=== PATIENT | male | born 1955 | race Caucasian/White ===

== ENCOUNTER → 2022-03-20 | Outpatient (CLI) | payer BC ==
[2022-03-20 15:44] LABS: ALBUMIN 4.1 G/DL (3.2-5.2); ALKALINE PHOSPHATASE 53 U/L (46-116); ALT/SGPT 23 U/L (7.0-40); AST/SGOT 25 U/L (<34); BILIRUBIN,TOTAL 0.5 MG/DL (0.3-1.2); BLOOD UREA NITROGEN 22 MG/DL (9-23); CALCIUM LEVEL 9.1 MG/DL (8.3-10.6); CARBON DIOXIDE LEVEL 25 MMOL/L (20-31); CHLORIDE LEVEL 105 MMOL/L (98-107); CHOLESTEROL LEVEL 172 MG/DL (<200); GLOMERULAR FILTRATION RATE > 60.0 (>49); GLUCOSE, FASTING 92 MG/DL (74-106); HDL CHOLESTEROL 68.8 MG/DL (>40); LDL CHOLESTEROL 88.2 MG/DL (<100); NON-HDL-C 103 MG/DL; POTASSIUM SERUM 4.5 MMOL/L (3.5-5.1); SODIUM LEVEL 139 MMOL/L (136-145); TOTAL PROTEIN 7.1 G/DL (5.7-8.2); TRIGLYCERIDES LEVEL 75 MG/DL (<150)
== END ==
LOC: M PLALAB 11:43
PROVIDERS: ATTEND Family Medicine
DX: I10 Essential (primary) hypertension (principal); E78.5 Hyperlipidemia, unspecified

== ENCOUNTER → 2022-06-12 | Outpatient (CLI) | payer BC ==
[~2022-06-12] MED LIST: ATOR1TAB21 PO; LOSA100T45 PO
== END ==
LOC: M LABSMTC 07:36
PROVIDERS: ATTEND Anesthesiology
DX: Z01.812 Encounter for preprocedural laboratory examination (principal); Z20.822 Contact with and (suspected) exposure to COVID-19

== ENCOUNTER 2022-06-17 08:12 | Day surgery (SDC) | payer BC ==
[~2022-06-17] VITALS: Ht 180.3 cm; Wt 74.1 kg
[~2022-06-17 08:12] MED LIST changes: +NS 1,000 ML IV ONE
[2022-06-17] MEDS ORDERED: propofoL 200 MG/20 ML VIAL As Ordered ONE (08:47)
[2022-06-17] MEDS ORDERED: LIDOCAINE 2% 100MG/5ML SDV (FOR ANES.) As Ordered ONE (08:47)
[2022-06-17] MEDS ORDERED: ePHEDrine INJ 50MG/ML 1ML VIAL As Ordered ONE (09:24)
[2022-06-17 09:50] VITALS: BP 103/61
== END 2022-06-17 10:03 | disposition home or self-care (01) ==
LOC: M OPP 08:12
PROVIDERS: ATTEND Surgery
DX: Z12.11 Encounter for screening for malignant neoplasm of colon (principal); K57.30 Diverticulosis of large intestine without perforation or abscess without bleeding; I10 Essential (primary) hypertension; E78.00 Pure hypercholesterolemia, unspecified; Z87.19 Personal history of other diseases of the digestive system; Z79.02 Long term (current) use of antithrombotics/antiplatelets; Z79.899 Other long term (current) drug therapy

== ENCOUNTER → 2023-05-07 | Outpatient (CLI) | payer MEDICARE ==
[~2023-05-07] MED LIST changes: -LOSA100T45 PO; +LOSA100T46 PO; -NS 1,000 ML IV ONE
[2023-05-07 15:58] LABS: ALBUMIN 4.1 G/DL (3.2-5.2); ALKALINE PHOSPHATASE 58 U/L (46-116); ALT/SGPT 49 U/L (7.0-40); AST/SGOT 23 U/L (<34); BILIRUBIN,TOTAL 0.8 MG/DL (0.3-1.2); BLOOD UREA NITROGEN 21 MG/DL (9-23); CALCIUM LEVEL 9.1 MG/DL (8.3-10.6); CARBON DIOXIDE LEVEL 30 MMOL/L (20-31); CHLORIDE LEVEL 107 MMOL/L (98-107); CHOLESTEROL LEVEL 165 MG/DL (<200); CREATININE FOR GFR 1.03 MG/DL (0.70-1.30); GLOMERULAR FILTRATION RATE > 60.0 (>49); GLUCOSE, FASTING 96 MG/DL (74-106); HDL CHOLESTEROL 48.4 MG/DL (>40); LDL CHOLESTEROL 89.2 MG/DL (<100); NON-HDL-C 116.6 MG/DL; POTASSIUM SERUM 4.7 MMOL/L (3.5-5.1); SODIUM LEVEL 140 MMOL/L (136-145); TOTAL PROTEIN 6.8 G/DL (5.7-8.2); TRIGLYCERIDES LEVEL 137 MG/DL (<150)
[2023-05-07 17:08] LABS: HEMOGLOBIN A1c 5.1 % (4.0-6.0)
== END ==
LOC: M PLALAB 14:39
PROVIDERS: ATTEND Family Medicine
DX: Z00.00 Encounter for general adult medical examination without abnormal findings (principal); I10 Essential (primary) hypertension; E78.5 Hyperlipidemia, unspecified; Z79.899 Other long term (current) drug therapy

== ENCOUNTER → 2024-05-12 | Outpatient (CLI) | payer MEDICARE ==
[2024-05-12 15:53] LABS: HEMOGLOBIN A1c 5.1 % (4.0-6.0)
[2024-05-12 15:58] LABS: ALBUMIN 4.1 G/DL (3.2-5.2); ALKALINE PHOSPHATASE 58 U/L (40-129); ALT/SGPT 36 U/L (7.0-40); AST/SGOT 22 U/L (<34); BILIRUBIN,TOTAL 0.8 MG/DL (0.3-1.2); BLOOD UREA NITROGEN 16 MG/DL (9-23); CALCIUM LEVEL 9.1 MG/DL (8.3-10.6); CARBON DIOXIDE LEVEL 27 MMOL/L (20-31); CHLORIDE LEVEL 104 MMOL/L (98-107); CHOLESTEROL LEVEL 166 MG/DL (<200); CHOLESTEROL RISK RATIO 2.46 (<5); CREATININE FOR GFR 0.92 MG/DL (0.70-1.30); GLOMERULAR FILTRATION RATE > 60.0 (>49); GLUCOSE, FASTING 98 MG/DL (74-106); HDL CHOLESTEROL 67.3 MG/DL (>40); LDL CHOLESTEROL 85.1 MG/DL (<100); NON-HDL-C 98.7 MG/DL; POTASSIUM SERUM 4.3 MMOL/L (3.5-5.1); SODIUM LEVEL 143 MMOL/L (136-145); TOTAL PROTEIN 6.7 G/DL (5.7-8.2); TRIGLYCERIDES LEVEL 68 MG/DL (<150)
[2024-05-12 16:01] LABS: PSA SCREENING 0.63 NG/ML (< 4.00)
== END ==
LOC: M PLALAB 11:59
PROVIDERS: ATTEND Family Medicine
DX: Z00.00 Encounter for general adult medical examination without abnormal findings (principal); I10 Essential (primary) hypertension; E78.5 Hyperlipidemia, unspecified; Z12.5 Encounter for screening for malignant neoplasm of prostate; Z79.899 Other long term (current) drug therapy
CPT/HCPCS: 36415; 80053; 80061; 83036; G0103

== ENCOUNTER → 2024-06-07 | Outpatient (REF) | payer MEDICARE | LOC: M SFHCDERM 17:45 | PROVIDERS: ATTEND Nurse Practitioner Family | DX: L82.1 Other seborrheic keratosis (principal) ==